=== PATIENT | male | born 1970 | race American Indian/Alaskan Native ===

== ENCOUNTER 2017-05-21 04:38 | Emergency (ER) | payer SELFPAY ==
[~2017-05-21 04:38] MED LIST: HEPARIN 10,000 UNITS/10 ML ONE; NACL 0.9% 1000 ML ONE; ZOFRAN ONE
[2017-05-21] MEDS ORDERED: ADRENALIN ONE (04:39)
[2017-05-21] MEDS ORDERED: D50W (25GM) Vial IV ONE (04:39)
--- NOTE | 2017-05-21 05:53 | Emergency Department Report ---
ED CPR HPI - General Chief Complaint: Cardiac Arrest/CPR Stated Complaint: CARDIAC ARREST Time Seen by Provider: 05/21/17 05:47 Source: EMS Mode of arrival: Stretcher Limitations: Other - History of Present Illness Initial Comments: Patient was found down approximately 4:12a when EMS arrived on scene. The medics were not quite sure what the rhythm was ,a did feel like shockable. They did place him on CPR. He had no return of spontaneous circulation he arrived to the ED a half hour after ACLS protocol was instituted. He still had no further return of spontaneous circulation. He was given full ACLS protocol en route when he was intubated he was placed on the CPR machine. He arrives with fixed and dilated pupils without spontaneous respirations without return of spontaneous circulation no other history was obtainable from the patient, pt immediatley placed on telemetry monitor and acls protocol was followedl. MD Complaint: found unresponsive Number of Shocks Delivered: 1 Initial Findings in the Field: unresponsive, no pulse, VTACH/VFIB ROSC in the Field: No Associated Injuries: No Treatments Prior to Arrival: intubation, chest compressions, defribrillated shocks #, epinephrine mgs # - Related Data Previous Rx's Medication Instructions Recorded Last Taken Type Aspirin [Aspirin TAB] 325 mg PO QDAY #30 tablet 12/01/13 Unknown Rx Furosemide [Lasix] 40 mg PO BID #60 tablet 08/05/14 Unknown Rx Metoprolol [Lopressor] 100 mg PO BID #60 tablet 08/05/14 Unknown Rx Nitroglycerin [Nitrostat] 0.4 mg SL .Q5MIN PRN #30 tab 08/05/14 Unknown Rx amLODIPine [Norvasc] 10 mg PO QDAY #30 tablet 08/05/14 Unknown Rx hydrALAZINE [Apresoline TAB] 25 mg PO TID #90 tablet 08/05/14 Unknown Rx Allergies Allergy/AdvReac Type Severity Reaction Status Date / Time codeine Allergy Itching Verified 02/02/14 09:46 ED Review of Systems ROS: Stated complaint: CARDIAC ARREST Other details as noted in HPI Comment: Unobtainable due to pts medical conditions ED Past Medical Hx - Past Medical History Previous Medical History?: Yes Hx Hypertension: Yes Hx Congestive Heart Failure: Yes Hx Diabetes: No Hx Asthma: No Hx COPD: No Additional medical history: pancreatitis - Surgical History Past Surgical History?: Yes Additional Surgical History: intestinal surg - 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 - Social History Smoking Status: Never Smoker Substance Use Type: Alcohol - Medications Home Medications: Home Medications Medication Instructions Recorded Confirmed Last Taken Type Aspirin [Aspirin TAB] 325 mg PO QDAY #30 tablet 12/01/13 06/13/15 Unknown Rx Furosemide [Lasix] 40 mg PO BID #60 tablet 08/05/14 06/13/15 Unknown Rx Metoprolol [Lopressor] 100 mg PO BID #60 tablet 08/05/14 06/13/15 Unknown Rx Nitroglycerin [Nitrostat] 0.4 mg SL .Q5MIN PRN #30 tab 08/05/14 06/13/15 Unknown Rx amLODIPine [Norvasc] 10 mg PO QDAY #30 tablet 08/05/14 06/13/15 Unknown Rx hydrALAZINE [Apresoline TAB] 25 mg PO TID #90 tablet 08/05/14 06/13/15 Unknown Rx ED Physical Exam - General Limitations: Other General appearance: other (unresponsive) - Head Head exam: Present: atraumatic, normocephalic - Eye Pupils: Present: other (fixed and dilated) - ENT ENT exam: Present: normal exam, normal orophraynx, other (ET tube in place with good color change breath sounds equal bilaterally good rise and fall of chest wall) - Neck Neck exam: Present: normal inspection. Absent: tenderness, meningismus - Respiratory Respiratory exam: Present: normal lung sounds bilaterally. Absent: stridor, chest wall tenderness, accessory muscle use, prolonged expiratory - Cardiovascular Cardiovascular Exam: Present: other (without heart tones without pulse or blood pressure) - GI/Abdominal GI/Abdominal exam: Present: soft. Absent: tenderness, guarding, rebound, rigid , mass, bruit, pulsatile mass - Extremities Exam Extremities exam: Absent: normal capillary refill, calf tenderness - Back Exam Back exam: Absent: paraspinal tenderness, vertebral tenderness - Neurological Exam Neurological exam: Present: other (unresponsive to stimuli ) - Skin Skin exam: Present: cyanosis, pallor ED Medical Decision Making - Medical Decision Making Patient was placed into the ED CPR was continued and we did continue ACLS protocol without success. Efforts were deemed futile at about 45 minutes after he was found down. He did have fixed dilated pupils. He had multiple rounds of epinephrine with continued CPR and several shocks which were felt to be likely the vtach. However despite aggressive ACLS protocol in route and in the ED ,patient had no return of spontaneous circulation. Efforts were therefore deemed futile and were terminated after 45-50 mins of down time. Critical Care Time: Yes Critical care time in (mins) excluding proc time.: 30 Critical care attestation.: If time is entered above; I have spent that time in minutes in the direct care of this critically ill patient, excluding procedure time. ED Disposition Clinical Impression: Cardiopulmonary arrest Disposition: DC-20 Is pt being admited?: No Condition: Stable Referrals: PRIMARY CARE, [Primary Care Provider] - 3-5 Days Time of Disposition: 05:57
== END 2017-05-21 08:30 ==
LOC: ED 04:38
DX: I46.9 Cardiac arrest, cause unspecified (principal); Z88.6 Allergy status to analgesic agent; I11.0 Hypertensive heart disease with heart failure; I50.9 Heart failure, unspecified
CPT/HCPCS: 31500; 82962; 92950; 99291; J0171; J1644; J2405; J7030